=== PATIENT | male | born 1970 | race Caucasian/White ===

== ENCOUNTER 2016-11-17 19:43 | Emergency (ER) | payer SELFPAY ==
[~2016-11-17] VITALS: Ht 167.6 cm; Wt 68.0 kg
[2016-11-17 19:50] VITALS: BP 117/70; PULSE 89; RESP 16; TEMP 98.2; O2SAT 97
--- NOTE | 2016-11-17 19:50 | NUR ---
PT PLACED IN BED 1. REPORT GIVEN TO AMBIKA CONSTANTINO.
--- NOTE | 2016-11-17 20:00 | NUR ---
Patient was placed on restains because patient was NOT will to allow me to start IV and give IV fuilds. MD allow restains while patient "adriana up." and IV fiuld was given. Will place on cadiac monitor and left the hoang open and entire ER staff is helping me watching the patient to ensure he does not get out of the bed or pull his IV out.
--- NOTE | 2016-11-17 20:00 | NUR ---
Dr. Rasheed at bedside to examine pt and discuss plan of care.
[2016-11-17] MEDS ORDERED: FOLIC ACID 1 MG, THIAMINE HCL 100 MG, MAGNESIUM SULFATE 1 GM, MVI 10 ML in NACL 0.9% 1,... IV ONE (20:15)
[2016-11-17] MEDS ORDERED: THIAMINE HCL 100 MG/ML VIAL ONE (20:26)
[2016-11-17] MEDS ORDERED: MVI 10 ML VIAL IV ONE (20:26)
[2016-11-17] MEDS ORDERED: FOLIC ACID 5 MG/ML VIAL IV ONE (20:26)
[2016-11-17] MEDS ORDERED: MAGNESIUM SULFATE 1 GM/2 ML VIAL ONE (20:26)
[2016-11-17] MEDS ORDERED: LORazepam 2 MG/ML VIAL (FOR ER USE) IVP ONE (21:30)
[2016-11-17] MEDS ORDERED: LORazepam 2 MG/ML VIAL (FOR ER USE) ONE (21:33)
--- NOTE | 2016-11-17 22:00 | NUR ---
IV fluid and medications are done and patient is feeling better and will to work with me and not get out of bed. Patient was able to use the bathroom and eating at bedside. Will continue to monitor patient.
--- NOTE | 2016-11-17 23:05 | NUR ---
Patient's IV was D/c and allowed to sleep in bed. Patient is in no s/s distress. Will conitue to monitor patient.
--- NOTE | 2016-11-18 02:10 | NUR ---
Patient is in deep sleep, No S/s of distress, will continue to monitor patient.
[2016-11-18 04:01] VITALS: BP 112/66; PULSE 88; RESP 16; TEMP 97.9; O2SAT 99
--- NOTE | 2016-11-18 04:02 | NUR ---
Patient given written and verbal discharge instructions and verbalizes understanding. ER MD discussed with patient the results and treatment provided. Patient in stable condition. ID arm band removed. IV catheter removed intact and dressing applied, no active bleeding. Patient educated on pain management and to follow up with PMD. Pain Scale 0/10. Opportunity for questions provided and answered.
== END 2016-11-18 04:01 | disposition home or self-care (01) ==
LOC: SED 19:43
DX: F10.229 Alcohol dependence with intoxication, unspecified (principal); F17.200 Nicotine dependence, unspecified, uncomplicated; Z59.0 Homelessness
CPT/HCPCS: 96365; 96375; 99284; J2060; J3411; J3475; J3490